=== PATIENT | female | born 1960 | race Caucasian/White ===

== ENCOUNTER 2016-10-29 12:18 | Day surgery (SDC) | payer BC ==
[~2016-10-29] VITALS: Ht 175.3 cm; Wt 84.8 kg
[~2016-10-29 12:18] MED LIST: ASC500 PO; FENO48TA4 PO; HYDR50TA3 PO; LEVO500T72 PO; LINE600T PO; METO10TA96 PO; MULT-552 PO; OXYC-279 PO; PANT40TA4 PO; VENL75TA2 PO
[2016-10-29 13:07] VITALS: Ht 175.3 cm; Wt 84.8 kg
[2016-10-29 13:21] VITALS: BP 140/82; PULSE 63; RESP 18
[2016-10-29] MEDS ORDERED: PROPOFOL 40 ML ONE (14:06)
[2016-10-29] MEDS ORDERED: LIDOCAINE 2% (SDV) 5 ML INJ ONE (14:06)
[2016-10-29] MEDS ORDERED: HYDROmorphONE 1 MG/ML SYG ONE (15:10)
[2016-10-29 15:20] VITALS: BP 145/84; PULSE 66; RESP 16
--- NOTE | 2016-10-29 15:34 | GILP ---
DATE OF PROCEDURE: 10/29/2016 PROCEDURE: Esophagogastroduodenoscopy with biopsies. SURGEON: Tata Sanderson MD BRIEF HISTORY AND INDICATIONS: The patient is being evaluated for history of esophageal ulceration s. PREMEDICATION: Monitored anesthesia care by anesthesiologist. INSTRUMENT USED: Olympus panendoscope. TECHNIQUE: After informed consent, with the patient/relatives understanding the procedure, its indic ations, potential risks and complications, including but not limited to: allergic reaction, bleeding , perforation or infection, and after all pertinent questions were answered to the patients satisfac tion, the patient/relatives signed witnessed informed consent. Following this, premedication was ad ministered slowly IV push under careful cardiovascular and respiratory monitoring with pulse oximetr y, automatic blood pressure and quality assurance monitor final. Once the sedative effect was achieved the patient was place in the left lateral decubitus, the panen doscope was introduced and advanced under visual control. Careful examination of the upper gastrointestinal tract, both on insertion as well as withdrawal of the instrument disclosed the following findings: ESOPHAGUS: The distal esophagus shows complete healing of previously noted ulcerations. There is i rregularity of the EG junction. Biopsies were obtained to rule out Gal[place]'s esophagus. A medium sized hiatal hernia is noted. STOMACH: Upon entrance to the stomach, air was insufflated, the gastric zambrano distended normally. There is erythema and edema of the mucosa of a moderate degree. Biopsies were obtained to rule out H. pylori infection. PYLORUS: The pylorus appears patent and within normal limits, with no evidence of gastric outlet ob struction. DUODENUM: The duodenal mucosa was carefully examined in the duodenal bulb as well as the second por tion of the duodenum and appears unremarkable with no evidence of duodenitis, ulcer or neoplasm . The instrument was then withdrawn, the patient tolerated the procedure well and was transfer out of the endoscopy suite awake, and in good condition to continue recovery under observation IMPRESSION: 1. Healed esophageal ulcers. 2. Irregular EG junction, rule out Gal[place]'s esophagus. Biopsies obtained. 3. Hiatal hernia, moderate size. 4. Mild gastritis, rule out Helicobacter pylori infection. Biopsies obtained. PLAN: The patient will be continued on present regimen. Further recommendation will depend on her clinical course as well as review of biopsies. Dictated By: TATA SANDERSON MS/RENÉE Conf#: [id number] DID#: [id number] CC: TATA SANDERSON;*[facility]*
== END 2016-10-29 16:07 | disposition home or self-care (01) ==
LOC: GIL 12:18
PROVIDERS: ATTEND Internal Medicine Gastroenterology
DX: K21.0 Gastro-esophageal reflux disease with esophagitis (principal); K44.9 Diaphragmatic hernia without obstruction or gangrene; K29.70 Gastritis, unspecified, without bleeding; I10 Essential (primary) hypertension; Z88.0 Allergy status to penicillin; Z88.8 Allergy status to other drugs, medicaments and biological substances
CPT/HCPCS: 43239; 88305; 88312; 88313; J1170; Z7610